=== PATIENT | male | born 1980 | race Two or more races ===

== ENCOUNTER 2022-10-16 16:38 | Inpatient (IN) | payer MEDICAID, OTHER ==
[~2022-10-16] VITALS: Ht 193 cm; Wt 74.0 kg
[2022-10-16] MEDS ORDERED: SODIUM CHLORIDE 0.9% 1,000 ML IV ONE (20:30)
[2022-10-16] MEDS ORDERED: CYCL-837 PO ×2 (20:34)
[2022-10-16] MEDS ORDERED: IBUP800T26 PO (20:34)
[2022-10-16] MEDS ORDERED: PRED15SO26 PO (21:07)
[2022-10-16] MEDS ORDERED: ACETAMINOPHEN 650 mg PER 20.3 mL UD PO ONE (22:00)
[2022-10-16 22:41] LABS: Basophils # (auto) 0.1 10 ^3/uL (0-0.2); Basophils % (auto) 0.7 % (0.0-2.0); Eosinophils # (auto) 0 10 ^3/uL (0-0.8); Hematocrit 45.1 % (41.0-53.0); Hemoglobin 15.8 g/dL (13.5-17.5); Lymphocytes # (auto) 0.8 10 ^3/uL (0.4-5.4); Lymphocytes % (auto) 7.5 % (10.0-50.0); Mean Corpuscular Hemoglobin 30.4 pg (28.0-32.0); Monocytes # (auto) 0.9 10 ^3/uL (0-1.3); Monocytes % (auto) 8.2 % (0.0-12.0); Neutrophils # (auto) 9.1 10 ^3/uL (1.6-8.6); Neutrophils % (auto) 83.6 % (37.0-80.0); Nucleated Red Blood Cells % 1.1 %; Red Blood Cells 5.18 10^6/uL (4.5-5.90); Red Cell Distribution Width 13.5 % (11.8-14.3); White Blood Cell 10.9 10^3/uL (4.4-10.8)
[2022-10-16 22:56] LABS: Albumin 3.8 g/dL (3.4-5.0); BUN/Creatinine Ratio 9.5; Calcium 8.5 mg/dL (8.5-10.1); Potassium 4.2 mmol/L (3.5-5.1)
[2022-10-16 22:59] LABS: Bilirubin, Total 0.5 mg/dL (0.2-1.0); Lactic Acid w/Reflex 3.5 mmol/L (0.4-2.0); Total Protein 7.2 g/dL (6.4-8.2)
[2022-10-17] MEDS ORDERED: SODIUM CHLORIDE 0.9% 1,000 ML IV ONE ×2 (01:30→16:30)
[2022-10-17] MEDS ORDERED: VANCOMYCIN 1GM/250ML 250 ML IV ONE (01:30)
[2022-10-17] MEDS ORDERED: PIPERACILLIN-TAZOB 3.375GM 100 ML IV ONE (01:30)
[2022-10-17] MEDS ORDERED: ACETAMINOPHEN 325 MG TAB PO ONE (05:00)
[2022-10-17] MEDS ORDERED: ACETAMINOPHEN 325 MG TAB PO PRN (05:00)
[2022-10-17] MEDS ORDERED: ONDANSETRON HCL 4 MG/2 ML VIAL IV PRN (05:00)
[2022-10-17] MEDS ORDERED: TEMAZEPAM 15 MG CAP PO PRN (05:00)
[2022-10-17] MEDS ORDERED: guaiFENesin-DM 100/10mg/5ml SYR PO PRN (06:00)
[2022-10-17 07:43] LABS: Urine Bacteria NONE SEEN /hpf (None Seen); Urine Blood 3+ /uL (Negative); Urine Mucus FEW (None Seen); Urine Specific Gravity 1.024 (1.001-1.035); Urine WBC 1 /hpf (0 - 3)
[2022-10-17] MEDS ORDERED: AZITHROMYCIN 500MG/ 250ML 250 ML IV SCH (10:00)
[2022-10-17] MEDS: MULTIPLE VITAMIN TAB PO SCH (10:50)
[2022-10-17] MEDS: PANTOPRAZOLE 40 MG TAB PO SCH (10:50)
[2022-10-17] MEDS: ZINC SULFATE 220mg CAP or TAB PO SCH (10:50)
[2022-10-17] MEDS: ASCORBIC ACID 500 MG TAB PO SCH ×2 (10:50→22:00)
[2022-10-17 15:37] LABS: Basophils # (auto) 0 10 ^3/uL (0-0.2); Basophils % (auto) 0.2 % (0.0-2.0); Eosinophils # (auto) 0 10 ^3/uL (0-0.8); Hematocrit 45.4 % (41.0-53.0); Hemoglobin 15.9 g/dL (13.5-17.5); Lymphocytes % (auto) 9.7 % (10.0-50.0); Mean Corpuscular Hemoglobin 30.4 pg (28.0-32.0); Mean Corpuscular Volume 86.9 fL (80.0-100.0); Monocytes # (auto) 0.8 10 ^3/uL (0-1.3); Monocytes % (auto) 7.5 % (0.0-12.0); Neutrophils # (auto) 8.4 10 ^3/uL (1.6-8.6); Neutrophils % (auto) 82.6 % (37.0-80.0); Red Blood Cells 5.23 10^6/uL (4.5-5.90); Red Cell Distribution Width 13.7 % (11.8-14.3); White Blood Cell 10.2 10^3/uL (4.4-10.8)
[2022-10-17 16:03] LABS: Albumin 3.7 g/dL (3.4-5.0); Calcium 8.6 mg/dL (8.5-10.1); Potassium 3.9 mmol/L (3.5-5.1)
[2022-10-17 16:06] LABS: BUN/Creatinine Ratio 13.9; Bilirubin, Total 0.6 mg/dL (0.2-1.0); Total Protein 7.2 g/dL (6.4-8.2)
[2022-10-17] MEDS ORDERED: DexAMETHasone INJECTION 10 MG in D5W 5% 50 ML IV ONE (16:30)
[2022-10-17] MEDS ORDERED: KETOROLAC TROMETH 30 MG/ML 1ML VIAL IV ONE (16:45)
[2022-10-17] MEDS ORDERED: KETOROLAC TROMETH 30 MG/ML 1ML VIAL IV PRN (16:45)
[2022-10-17] MEDS ORDERED: MOLNUPIRAVIR 800 MG PO SCH (17:00)
[2022-10-17] MEDS: D5W/SOD CHLO 0.9% 1,000 ML IV SCH ×2 (17:08→23:10)
[2022-10-17] MEDS: MAGIC MOUTHWASH 55 ML SUSP MT SCH ×2 (18:09→21:51)
[2022-10-17 22:00] VITALS: BP 120/76
[2022-10-17] MEDS: MOLNUPIRAVIR 800 MG PO SCH (22:00)
[2022-10-18] MEDS: AMPICILLIN & SULBACTAM SODIUM 3 GM in SODIUM CHL 0.9% 100 ML IV SCH ×7 (00:40→23:45)
[2022-10-18 05:00] VITALS: BP 109/70
[2022-10-18] MEDS: MAGIC MOUTHWASH 55 ML SUSP MT SCH ×4 (05:25→21:53)
[2022-10-18] MEDS: D5W/SOD CHLO 0.9% 1,000 ML IV SCH (05:50)
[2022-10-18 06:17] LABS: Basophils # (auto) 0 10 ^3/uL (0-0.2); Basophils % (auto) 0.1 % (0.0-2.0); Eosinophils # (auto) 0 10 ^3/uL (0-0.8); Hematocrit 40.9 % (41.0-53.0); Hemoglobin 14.9 g/dL (13.5-17.5); Lymphocytes # (auto) 0.6 10 ^3/uL (0.4-5.4); Lymphocytes % (auto) 7.3 % (10.0-50.0); Mean Corpuscular Hemoglobin 30.9 pg (28.0-32.0); Mean Corpuscular Hgb Conc. 36.3 g/dL (32.0-36.0); Mean Corpuscular Volume 85.2 fL (80.0-100.0); Monocytes # (auto) 0.4 10 ^3/uL (0-1.3); Monocytes % (auto) 4.3 % (0.0-12.0); Neutrophils # (auto) 7.6 10 ^3/uL (1.6-8.6); Neutrophils % (auto) 88.3 % (37.0-80.0); Nucleated Red Blood Cells % 0.1 %; Red Cell Distribution Width 13.5 % (11.8-14.3); White Blood Cell 8.6 10^3/uL (4.4-10.8)
[2022-10-18 06:25] LABS: Potassium 4.1 mmol/L (3.5-5.1)
[2022-10-18 06:29] LABS: Albumin 3.2 g/dL (3.4-5.0); BUN/Creatinine Ratio 16.3; Calcium 8.5 mg/dL (8.5-10.1)
[2022-10-18 06:31] LABS: Bilirubin, Total 0.5 mg/dL (0.2-1.0); Total Protein 6.5 g/dL (6.4-8.2)
[2022-10-18 09:00] VITALS: BP 135/89
[2022-10-18] MEDS ORDERED: PATIENTS OWN MEDICATION PO SCH (10:00)
[2022-10-18] MEDS: MOLNUPIRAVIR 800 MG PO SCH ×2 (10:00→22:00)
[2022-10-18] MEDS: ASCORBIC ACID 500 MG TAB PO SCH ×2 (10:27→21:53)
[2022-10-18] MEDS: ZINC SULFATE 220mg CAP or TAB PO SCH (10:27)
[2022-10-18] MEDS: MULTIPLE VITAMIN TAB PO SCH (10:27)
[2022-10-18] MEDS: PANTOPRAZOLE 40 MG TAB PO SCH (10:27)
[2022-10-18 12:34] VITALS: BP 139/79
[2022-10-18] MEDS: SODIUM CHLORIDE 0.9% 1,000 ML IV SCH (13:42)
[2022-10-18 16:22] VITALS: BP 107/67
[2022-10-18 21:36] VITALS: BP 106/56
[2022-10-19] MEDS: SODIUM CHLORIDE 0.9% 1,000 ML IV SCH ×2 (03:05→16:25)
[2022-10-19 04:42] VITALS: BP 107/72
[2022-10-19] MEDS: MAGIC MOUTHWASH 55 ML SUSP MT SCH ×3 (06:00→18:00)
[2022-10-19] MEDS: AMPICILLIN & SULBACTAM SODIUM 3 GM in SODIUM CHL 0.9% 100 ML IV SCH ×3 (06:00→18:00)
[2022-10-19 06:07] LABS: Basophils # (auto) 0 10 ^3/uL (0-0.2); Basophils % (auto) 0.1 % (0.0-2.0); Eosinophils # (auto) 0 10 ^3/uL (0-0.8); Eosinophils % (auto) 0.1 % (0.0-7.0); Hematocrit 36.9 % (41.0-53.0); Hemoglobin 13.1 g/dL (13.5-17.5); Lymphocytes # (auto) 1.6 10 ^3/uL (0.4-5.4); Lymphocytes % (auto) 29.5 % (10.0-50.0); Mean Corpuscular Hemoglobin 30.6 pg (28.0-32.0); Mean Corpuscular Hgb Conc. 35.4 g/dL (32.0-36.0); Mean Corpuscular Volume 86.4 fL (80.0-100.0); Monocytes # (auto) 0.4 10 ^3/uL (0-1.3); Monocytes % (auto) 7.5 % (0.0-12.0); Neutrophils # (auto) 3.4 10 ^3/uL (1.6-8.6); Neutrophils % (auto) 62.8 % (37.0-80.0); Nucleated Red Blood Cells % 0.1 %; Red Blood Cells 4.27 10^6/uL (4.5-5.90); Red Cell Distribution Width 13.3 % (11.8-14.3); White Blood Cell 5.5 10^3/uL (4.4-10.8)
[2022-10-19 06:19] LABS: Calcium 8.1 mg/dL (8.5-10.1)
[2022-10-19 06:25] LABS: Albumin 3.1 g/dL (3.4-5.0); BUN/Creatinine Ratio 21.1; Bilirubin, Total 0.4 mg/dL (0.2-1.0); Total Protein 5.7 g/dL (6.4-8.2)
[2022-10-19] MEDS: ZINC SULFATE 220mg CAP or TAB PO SCH (08:20)
[2022-10-19] MEDS: PANTOPRAZOLE 40 MG TAB PO SCH (08:20)
[2022-10-19] MEDS: MULTIPLE VITAMIN TAB PO SCH (08:20)
[2022-10-19] MEDS: ASCORBIC ACID 500 MG TAB PO SCH (08:21)
[2022-10-19] MEDS: MOLNUPIRAVIR 800 MG PO SCH (08:21)
[2022-10-19 08:51] VITALS: BP 96/58
[2022-10-19] MEDS ORDERED: POLYETHYLENE GLYCOL 17 GM PWDR PO SCH (10:00)
[2022-10-19 12:57] VITALS: BP 112/71
[2022-10-19] MEDS ORDERED: MOLNUPIRAVIR 200 MG PO SCH (13:31)
[2022-10-19] MEDS ORDERED: MAGIC MT (14:22)
[2022-10-19] MEDS ORDERED: AMOXSUS6 PO (14:22)
[2022-10-19 16:17] VITALS: BP 94/54
== END 2022-10-19 17:53 | disposition home or self-care (01) | DRG 720 ==
LOC: ER 16:38 → OVERFLOW 10-17 04:59 → EAST 10-17 19:13
PROVIDERS: ADMIT Nurse Practitioner; ATTEND Student in an Organized Health Care Education/Training Program
DX: A41.89 Other specified sepsis (principal); U07.1 COVID-19; N17.9 Acute kidney failure, unspecified; E86.0 Dehydration; R13.10 Dysphagia, unspecified; Z87.442 Personal history of urinary calculi
CPT/HCPCS: 36415; 70490; 71045; 71250; 74176; 80053; 81001; 83605; 84484; 85025; 87040; 87426; 87804; 93005; 96365; 96366; 96367; 96368; 96375; G0378; J1100; J1885; J2405; J2543; J7060